=== PATIENT | female | born 1985 | race Two or more races ===

== ENCOUNTER 2017-04-18 10:47 | Inpatient (IN) | payer OTHER ==
[~2017-04-18] VITALS: Ht 152.4 cm; Wt 78.6 kg
[2017-04-18] MEDS ORDERED: NEWBORN KIT ONE (11:35)
[2017-04-18] MEDS ORDERED: PREN-3 PO (11:52)
[2017-04-18] MEDS ORDERED: OXYTOCIN 30U/ 0.9% NaCL 500ML 500 ML IV ONE (12:07)
[2017-04-18] MEDS ORDERED: OXYTOCIN 30U/ 0.9% NaCL 500ML 500 ML ONE (12:22)
[2017-04-18] MEDS ORDERED: MISOPROSTOL 25 MCG TABLET ONE ×3 (12:22→16:49)
[2017-04-18] MEDS ORDERED: FENTANYL PF 100 MCG/2ML IV PRN (12:30)
[2017-04-18] MEDS ORDERED: FENTANYL PF 100 MCG/2ML IVPush PRN (12:30)
[2017-04-18] MEDS ORDERED: MISOPROSTOL 25 MCG TABLET PO PRN (12:30)
[2017-04-18] MEDS ORDERED: ONDANSETRON 2MG/ML, 2ML IVPush PRN (12:30)
[2017-04-18] MEDS: LACTATED RINGERS 1,000 ML IV SCH ×2 (12:33→20:32)
[2017-04-18 12:39] LABS: HEMOGLOBIN 14.5 g/dL (11.7-16.4); WHITE BLOOD COUNT 13.2 x10^3/uL (3.4-10)
[2017-04-18] MEDS ORDERED: FENTANYL PF 100 MCG/2ML ONE (21:40)
[2017-04-18] MEDS ORDERED: FENTANYL/BUPIV./NS/PF 250 ML EPIDCONT SCH (22:04)
[2017-04-18] MEDS ORDERED: LACTATED RINGERS 1,000 ML IV SCH (22:04)
[2017-04-18] MEDS ORDERED: BUPIVACAINE/PF 0.25% ONE (22:06)
[2017-04-18] MEDS ORDERED: FENTANYL/BUPIV./NS/PF 250 ML EPIDCONT ONE (22:07)
[2017-04-18] MEDS ORDERED: EPHEDRINE 50 MG/ML, 1ML IVPush PRN (22:30)
[2017-04-18] MEDS ORDERED: LACTATED RINGERS 1,000 ML IVBOLUS PRN (22:30)
[2017-04-18] MEDS ORDERED: NALOXONE 0.4 MG/ML, 1ML IVPush PRN (22:30)
[2017-04-18] MEDS ORDERED: LACTATED RINGERS 1,000 ML INTUTE PRN (23:30)
[2017-04-19] VITALS (7 sets, daily range): BP systolic 103–120; BP diastolic 61–77
[2017-04-19] MEDS ORDERED: MISOPROSTOL 200 MCG TABLET PR PRN (01:30)
[2017-04-19] MEDS ORDERED: ONDANSETRON 2MG/ML, 2ML IV PRN (01:30)
[2017-04-19] MEDS ORDERED: CALCIUM CARBONATE 500 MG TAB.CHEW PO PRN (01:30)
[2017-04-19] MEDS ORDERED: HYDROcodone/APAP 5/325 TABLET PO PRN (01:30)
[2017-04-19] MEDS: OXYTOCIN 30U/ 0.9% NaCL 500ML 500 ML IV SCH ×3 (01:30→21:30)
[2017-04-19] MEDS ORDERED: MAGNESIUM HYDROXIDE 8%, 30ML UDC PO PRN (01:30)
[2017-04-19] MEDS ORDERED: OXYTOCIN 30U/ 0.9% NaCL 500ML 500 ML ONE (02:18)
[2017-04-19] MEDS: PRENATAL VIT/IRON/FA 1 EACH TABLET PO SCH (09:00)
[2017-04-19 09:27] LABS: HEMATOCRIT 36.9 % (34.6-47.8); HEMOGLOBIN 12.6 g/dL (11.7-16.4); WHITE BLOOD COUNT 15.5 x10^3/uL (3.4-10)
[2017-04-19] MEDS: IBUPROFEN 600 MG TABLET PO PRN ×2 (11:10→17:10)
[2017-04-19] MEDS: HYDROcodone/APAP 5/325 TABLET PO PRN ×2 (11:42→17:10)
[2017-04-19] MEDS: DOCUSATE 100 MG CAPSULE PO PRN (22:00)
[2017-04-20 00:10] VITALS: BP 115/68
[2017-04-20] MEDS: OXYTOCIN 30U/ 0.9% NaCL 500ML 500 ML IV SCH (07:30)
[2017-04-20] MEDS: HYDROcodone/APAP 5/325 TABLET PO PRN (07:38)
[2017-04-20] MEDS: DOCUSATE 100 MG CAPSULE PO PRN (07:38)
[2017-04-20] MEDS: PRENATAL VIT/IRON/FA 1 EACH TABLET PO SCH (07:38)
[2017-04-20] MEDS: IBUPROFEN 600 MG TABLET PO PRN (07:38)
[2017-04-20 07:45] VITALS: BP 115/80
[2017-04-20] MEDS ORDERED: DOCU-131 PO (10:23)
[2017-04-20] MEDS ORDERED: IBUP-1223 PO (10:24)
[2017-04-20] MEDS ORDERED: HYDR-3237 PO (10:25)
== END 2017-04-20 11:34 | disposition home or self-care (01) | DRG 775 ==
LOC: LDOP 10:47 → LDIP 11:33 → 2NW 04-19 03:00 → EDSTATUS 04-23 10:46
PROVIDERS: ADMIT Obstetrics & Gynecology; ATTEND Obstetrics & Gynecology
PROC: 10E0XZZ Delivery of Products of Conception, External Approach (ICD-10-PCS; principal; 2017-04-19)
PROC: 0HQ9XZZ Repair Perineum Skin, External Approach (ICD-10-PCS; 2017-04-19)
PROC: 3E0S3CZ (ICD-10-PCS; 2017-04-19)
PROC: 00HU33Z Insertion of Infusion Device into Spinal Canal, Percutaneous Approach (ICD-10-PCS; 2017-04-19)
DX: O42.92 Full-term premature rupture of membranes, unspecified as to length of time between rupture and onset of labor (principal); O70.0 First degree perineal laceration during delivery; Z37.0 Single live birth; Z3A.39 39 weeks gestation of pregnancy
CPT/HCPCS: 36415; 85025; 86850; 86900; 89060; J3010; J2590; J7120; Q0114

== ENCOUNTER 2019-01-04 18:57 | Emergency (ER) | payer MEDICAID, OTHER ==
[~2019-01-04] VITALS: Ht 152.4 cm; Wt 76.1 kg
[~2019-01-04 18:57] MED LIST: DOCU-131 PO; HYDR-3237 PO; IBUP-1223 PO; PREN-3 PO
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
[2019-01-04] MEDS ORDERED: ONDANSETRON 2MG/ML, 2ML ONE (19:44)
[2019-01-04] MEDS ORDERED: MORPHINE SULFATE 4 MG/ML, 1ML ONE ×2 (19:44→20:22)
[2019-01-04] MEDS: MORPHINE SULFATE 4 MG/ML, 1ML IVPush PRN ×2 (19:46→20:23)
--- NOTE | 2019-01-04 19:48 | NUR ---
PT MEDICATED PER MAR. PT TO XRAY
[2019-01-04 19:52] LABS: BASOPHILS # (AUTO) 0.01 x10^3/uL (0-0.1); BASOPHILS % (AUTO) 0 % (0-1); EOSINOPHILS # (AUTO) 0.02 x10^3/uL (0-0.4); EOSINOPHILS % (AUTO) 0 % (1-7); LYMPHOCYTES # (AUTO) 0.88 x10^3/uL (1-3.4); LYMPHOCYTES % (AUTO) 8 % (22-44); MD NO; MEAN CORPUSCULAR HEMOGLOBIN 29.4 pg (27.0-34.8); MEAN PLATELET VOLUME 10.6 fL (7.4-10.4); MONOCYTES # (AUTO) 0.11 x10^3/uL (0.2-0.8); MONOCYTES % (AUTO) 1 % (2-9); NEUTROPHILS # (AUTO) 9.35 x10^3/uL (1.8-6.8); NEUTROPHILS % (AUTO) 90 % (42-75); PLATELET COUNT 248 x10^3/uL (130-400); RED BLOOD COUNT 5.29 x10^6/uL (3.82-5.3); RED CELL DISTRIBUTION WIDTH 13.9 % (9.6-15.2)
[2019-01-04] MEDS ORDERED: SODIUM CHLORIDE 0.9% 1,000ML IVBOLUS ONE (20:00)
[2019-01-04] MEDS ORDERED: ONDANSETRON 2MG/ML, 2ML IVPush ONE (20:00)
[2019-01-04] MEDS ORDERED: SODIUM CHLORIDE FLUSH 10ML SYR IVF ONE (20:00)
[2019-01-04 20:03] LABS: ALANINE AMINOTRANSFERASE 27 U/L (12-78); ALBUMIN 3.8 g/dL (3.4-5.0); ANION GAP 10 mmol/L (5-15); CALCIUM 8.3 mg/dL (8.5-10.1); CHLORIDE 110 mmol/L (98-107)
[2019-01-04 20:08] LABS: ALKALINE PHOSPHATASE 108 U/L (45-117); BILIRUBIN,TOTAL 0.4 mg/dL (0.2-1.0)
--- NOTE | 2019-01-04 20:08 | NUR ---
PT UP TO RR WITH STEADY GAIT, PROVIDED PT WITH URINE CUP FOR SAMPLE
--- NOTE | 2019-01-04 20:13 | NUR ---
URINE SAMPLE TAKEN TO LAB
[2019-01-04 20:22] LABS: MICROSCOPIC AUTO
--- NOTE | 2019-01-04 20:23 | NUR ---
PT C/O CONTINUED EPIGASTRIC PAIN, REQUESTING MEDICATION FOR PAIN, PT MEDICATED PER MAR
[2019-01-04 20:26] LABS: CULTURE INDICATED? YES
[2019-01-04] MEDS ORDERED: MAALOX/HYOSCYAMINE/LIDOCAINE 45 ML BTL ONE (20:53)
[2019-01-04] MEDS ORDERED: MAALOX/HYOSCYAMINE/LIDOCAINE 45 ML BTL PO ONE (21:00)
--- NOTE | 2019-01-04 21:01 | NUR ---
ADDITIONAL ORDER RECEIVED FOR CT, AWAITING CT
[2019-01-04] MEDS ORDERED: PROMETHAZINE 25 MG/ML, 1ML ONE (21:09)
[2019-01-04] MEDS ORDERED: OMNIPAQUE 350 MG/ML, 100ML BOTTLE ONE (21:24)
[2019-01-04] MEDS ORDERED: PROMETHAZINE 25 MG/ML, 1ML IM ONE (21:30)
[2019-01-04 22:07] VITALS: BP 97/61
== END 2019-01-04 22:19 | disposition home or self-care (01) ==
LOC: ED 20:16
DX: K21.9 Gastro-esophageal reflux disease without esophagitis (principal); R05 Cough; R11.2 Nausea with vomiting, unspecified; R10.33 Periumbilical pain; R10.13 Epigastric pain
CPT/HCPCS: 36415; 71046; 74177; 80053; 81001; 84703; 85025; 85379; 87086; 93005; 96361; 96372; 96374; 96375; 96376; 99284; J2270; J2405; J2550; J7030; Q9967